=== PATIENT | male | born 1970 | race African-American/Black ===

== ENCOUNTER 2018-11-08 18:15 | Observation (INO) ==
[2018-11-08] MEDS ORDERED: hydrALAZINE 20 MG/1 ML VIAL IV STA ×2 (19:09→19:50)
[2018-11-08] MEDS ORDERED: LABETALOL 20 MG/4 ML SYRINGE IV STA ×2 (19:09→20:10)
[2018-11-08 20:44] LABS: Basophils # 0.1 10*3/uL (0.0-0.2); Basophils % 0.9 % (0.0-0.8); Eosinophils # 0.1 10*3/uL (0.0-0.87); Eosinophils % 1.2 % (0.00-10.9); Hematocrit 41.5 VOL% (42.0-52.0); Hemoglobin 13.5 GM/DL (14.0-18.0); Immature Granulocytes % 0.6 %; Immature Granulocytes Absolute 0.06 #; Lymphocytes # 4.1 10*3/uL (1.4-4.0); Lymphocytes % 40.5 % (21.2-54.2); Mean Corpuscular HGB Conc 32.5 GM/DL (32-36); Mean Corpuscular Hemoglobin 30 PG (27-34); Mean Platelet Volume 11.7 FL (9.6-12.0); Monocytes # 0.8 10*3/uL (0.11-0.8); Monocytes % 7.5 % (1.7-12.7); Neutrophils # 4.9 10*3/uL (1.4-7.4); Neutrophils % 49.3 % (38.7-73.9); Platelet Count 217 T/CUMM (130-400); Red Blood Count 4.56 MC/CUMM (3.8-5.5); Red Cell Distribution Width 13.4 % (9.3-17.3)
[2018-11-08 21:04] LABS: Bilirubin,Total 0.5 MG/DL (0.2-1.0); Calcium 8.9 MG/DL (8.5-10.1); Osmolality,Calculated 283.1 MOS/KG (273-304); Potassium 3.6 MMOL/L (3.5-5.1); Total Protein 8.2 G/DL (6.4-8.3)
[2018-11-08] MEDS ORDERED: POTASSIUM CHLORIDE 20 MEQ TABLET PO PRN (23:37)
[2018-11-09 03:13] LABS: Risk Ratio 2.5; VLDL CHOLESTEROL 19.4 MG/DL
[2018-11-09] MEDS: ENOXAPARIN 40 MG/0.4 ML SYRINGE SUBCUT SCH ×2 (03:29→23:05)
[2018-11-09] MEDS: METOPROLOL TARTRATE 25 MG TABLET PO SCH ×3 (07:24→21:01)
[2018-11-09] MEDS: SULINDAC 200 MG TABLET PO SCH ×2 (07:35→21:58)
[2018-11-09] MEDS ORDERED: LOSARTAN 50 MG TABLET PO SCH (09:00)
[2018-11-09] MEDS: ASPIRIN EC 81 MG TABLET PO SCH (09:09)
[2018-11-09] MEDS: PANTOPRAZOLE 40 MG TABLET PO SCH (09:09)
[2018-11-09] MEDS: hydrALAZINE 20 MG/1 ML VIAL IV PRN ×2 (20:02→23:52)
[2018-11-09] MEDS: LOSARTAN 50 MG TABLET PO SCH (21:01)
[2018-11-10] MEDS: hydrALAZINE 20 MG/1 ML VIAL IV PRN ×5 (01:02→20:55)
[2018-11-10] MEDS: LORazepam 1 MG TABLET PO PRN ×3 (03:02→16:08)
[2018-11-10] MEDS: METOPROLOL TARTRATE 25 MG TABLET PO SCH (08:15)
[2018-11-10] MEDS: ASPIRIN EC 81 MG TABLET PO SCH (08:15)
[2018-11-10] MEDS: PANTOPRAZOLE 40 MG TABLET PO SCH (08:15)
[2018-11-10] MEDS: LOSARTAN 50 MG TABLET PO SCH ×2 (08:16→20:52)
[2018-11-10] MEDS ORDERED: METOPROLOL TARTRATE 25 MG TABLET PO SCH (10:40)
[2018-11-10] MEDS ORDERED: METOPROLOL TARTRATE 25 MG TABLET PO ONE (10:41)
[2018-11-10] MEDS ORDERED: SERTRALINE 25 MG TABLET PO ONE (10:52)
[2018-11-10] MEDS: hydroCHLOROthiazide 12.5 MG CAPSULE PO SCH (11:58)
[2018-11-10] MEDS: CARVEDILOL 25 MG TABLET PO SCH ×2 (11:59→20:52)
[2018-11-10] MEDS ORDERED: ACETAMINOPHEN 325 MG TABLET PO PRN (12:08)
[2018-11-10] MEDS ORDERED: POTASSIUM CHLORIDE 20 MEQ PACK PO ONE (20:02)
[2018-11-10] MEDS ORDERED: SERTRALINE 25 MG TABLET PO SCH (21:00)
[2018-11-10] MEDS ORDERED: SULINDAC 200 MG TABLET PO SCH (21:00)
[2018-11-10] MEDS: ENOXAPARIN 40 MG/0.4 ML SYRINGE SUBCUT SCH (23:59)
[2018-11-11 06:51] LABS: Basophils # 0.1 10*3/uL (0.0-0.2); Basophils % 0.6 % (0.0-0.8); Eosinophils # 0.2 10*3/uL (0.0-0.87); Eosinophils % 2.4 % (0.00-10.9); Hematocrit 42.7 VOL% (42.0-52.0); Immature Granulocytes % 0.4 %; Immature Granulocytes Absolute 0.03 #; Lymphocytes # 3.5 10*3/uL (1.4-4.0); Lymphocytes % 42.3 % (21.2-54.2); Mean Corpuscular HGB Conc 32.8 GM/DL (32-36); Mean Corpuscular Hemoglobin 30 PG (27-34); Mean Corpuscular Volume 90.5 FL (87-102); Mean Platelet Volume 11.9 FL (9.6-12.0); Monocytes # 0.7 10*3/uL (0.11-0.8); Monocytes % 8.3 % (1.7-12.7); Neutrophils # 3.9 10*3/uL (1.4-7.4); Platelet Count 229 T/CUMM (130-400); Red Blood Count 4.72 MC/CUMM (3.8-5.5); Red Cell Distribution Width 13.2 % (9.3-17.3); White Blood Count 8.4 T/CUMM (4-12)
[2018-11-11 07:12] LABS: Calcium 8.9 MG/DL (8.5-10.1); Osmolality,Calculated 278.7 MOS/KG (273-304); Potassium 3.7 MMOL/L (3.5-5.1)
[2018-11-11 07:59] VITALS: BP 137/93
[2018-11-11] MEDS: PANTOPRAZOLE 40 MG TABLET PO SCH (08:19)
[2018-11-11] MEDS: ASPIRIN EC 81 MG TABLET PO SCH (08:19)
[2018-11-11] MEDS: CARVEDILOL 25 MG TABLET PO SCH (08:19)
[2018-11-11] MEDS: hydroCHLOROthiazide 12.5 MG CAPSULE PO SCH (08:19)
[2018-11-11] MEDS: LOSARTAN 50 MG TABLET PO SCH (08:19)
== END 2018-11-11 09:55 | disposition home or self-care (01) ==
LOC: N.EDINP 18:15 → N.ED 18:15 → N.5E 11-09 02:08
PROVIDERS: ADMIT Internal Medicine; ATTEND Internal Medicine